=== PATIENT | female | born 1965 | race Caucasian/White ===

== ENCOUNTER 2024-06-26 15:37 | Emergency (ER) | payer OTHER, SELFPAY ==
[2024-06-26 15:42] VITALS: BP 130/89
--- NOTE | 2024-06-26 18:21 | ED.GENMED ---
History of Present Illness
General
Chief Complaint: Fall
Source: patient
Time Seen by Provider: 06/26/24 17:02
History of Present Illness
History of Present Illness:
59yoF with a history of chronic neck pain on opioids presenting for evaluation after a fall about 1.5 weeks ago. Patient tripped on her dog and landed on her left side. No head strike or LOC. She reports left sided rib pain as well as left shoulder
and wrist pain. The pain seems to be worsening over the past several days. No shortness of breath.
Past History
Past History
ED Past Medical History: Asthma, Other (Cellulitis) and Other (Chronic neck and back pain, narcotic dependent, hepatitis C)
ED Past Surgical History: and Orthopedic (cspine)
Social History
Tobacco: Former smoker
Alcohol: None
Drug: None
Personal:
Living: with family
Employment: Employed
Family History
Family History: Hypertension
Phy Exam
General Physical Exam
General Presentation: well appearing and no apparent distress
General age: appears stated age
General Skin: warm and dry
General Habitus: normal
General Mental: alert
Pulmonary Exam
Pulmonary Exam: lungs clear, no respiratory distress, no crackles, no wheezing and other (Bilateral breath sounds. +L sided chest tenderness. No skin changes or deformity. )
Musculoskeletal Exam
Musculoskeletal Exam: other (ROM of L shoulder mildly limited 2/2 pain. No deformity or soft tissue swelling. +Diffuse L wrist tenderness. No snuffbox tenderness. 2+ radial pulse and sensation intact. )
Skin Exam
Skin Exam: normal color and warm/dry
Course
Orders/Labs/Results
Orders:
Orders
06/26/24 15:47
Ribs, Left 3 View W/PA Chest CR [CR Ribs-left 3 Vw W/pa Chest] Urgent
Comment:
Reason For Exam: left anterior chest pain from fall onto left side
06/26/24 15:48
Wrist, Left 3 Views CR [CR Wrist - Left Min 3 Views] Urgent
Comment:
Reason For Exam: left wrist injury from fall
06/26/24 15:49
Electrocardiogram (*1) Urgent
Reason for Study: Chest Pain
EKG- Treatment ONCE
06/26/24 17:25
CR Shoulder - Left Min 2 View* Urgent
Comment:
Reason For Exam: pain, injury
06/26/24 18:21
[place] Wrist Right-Tx ONCE
Incentive Spirometry [Rx Incentive Spirometry] [RESP] Urgent
Frequency: q1h while awake
Vital Signs
Initial and Last Documented VS:
Initial Vital Signs
Temp Pulse Resp BP Pulse Ox
98.4 F 91 18 130/89 99
06/26/24 15:42 06/26/24 15:42 06/26/24 15:42 06/26/24 15:42 06/26/24 15:42
Last Documented Vital Signs
Temp Pulse Resp BP Pulse Ox
98.4 F 91 18 130/89 99
06/26/24 15:42 06/26/24 15:42 06/26/24 15:42 06/26/24 15:42 06/26/24 15:42
MDM/Problems Addressed
Differential Diagnosis Includes:
59yoF here with L rib, shoulder, and wrist pain after a fall 1.5 weeks ago. She is afebrile and hemodynamically stable. Oxygen saturation 99% on room air. +L sided rib tenderness on exam without deformity or skin changes. Lungs CTA. LUE is
neurovascularly intact. Differential diagnosis includes but is not limited to: Rib fracture, sprain, pneumothorax
X-rays of L shoulder, L wrist, and L rib series obtained. No acute fractures seen per my interpretation. No pneumothorax appreciated. Incentive spirometer given for pulmonary toilet. Wrist brace provided. Supportive care discussed. Advised f/u with
PCP. ED return precautions discussed. Patient discharged in stable condition.
*Critical Care Note
Total Time (30-74mins, 75-104mins- exclusive of procedures): Not Applicable
ED Attending Note
-
Portions of this chart may have been created with voice recognition software.� Occasional wrong word or��sound alike� substitutions may have occurred due to the inherent limitations of voice recognition software.
Discharge Plan
Departure
Patient Disposition: Home (Routine Discharge)
Date of Disposition: 06/26/24
Time of Disposition: 18:26
Patient with high blood pressure during this ER visit?: No
Discharge Problem:
Fall from slip, trip, or stumble, Rib pain on left side, Left wrist sprain
Instructions: Bruised Rib (DC)
Prescriptions:
No Action
sertraline 100 MG tablet
100 mg PO DAILY
amitriptyline 50 MG tablet
50 mg PO HS
albuterol sulfate 1 PUFF HFA aerosol inhaler
1 puff inhalation R DAILYPRN PRN (Reason: sob)
bacitracin 1 APPLIC ointment
1 applic BOTH EYES HS
oxycodone-acetaminophen [Endocet] 1 EACH tablet
1 ea PO Q6HPRN PRN (Reason: PAIN)
beclomethasone dipropionate [Qvar] 8.7 GM aerosol
1 puff inhalation R BID
cyclosporine [Restasis] 10 DROPS dropperette
1 drp BOTH EYES BID
morphine [Alannah] 60 MG capsule,extend.release pellets
60 mg PO BID
chlorzoxazone [Lorzone] 750 MG tablet
750 mg PO Q6HPRN PRN (Reason: MUSCULOSKELETAL )
omega 5-mqa-fyr-fish oil 1 EACH capsule
1 ea PO HS
multivitamin with folic acid [Tab-A-Keith] 1 TABLET tablet
1 tab PO DAILY
acetaminophen 325 MG tablet
650 mg PO Q4HPRN PRN (Reason: pain or temp > 100.4 F) Qty: 0 0RF
fluticasone propionate [Flovent HFA] 1 PUFF HFA aerosol inhaler
1 puff inhalation R BID Qty: 1 0RF
sodium chloride 0.9 % (flush) [Normal Saline Flush] 1 FLUSH syringe
0 flush IV PER PROTOCOL 0RF
doxycycline hyclate 100 MG capsule
100 mg PO Q12 Qty: 14 0RF
amoxicillin-pot clavulanate 1 TABLET tablet
1 tab PO Q12 Qty: 14 0RF
Referrals:
Erica Oliver DO [Family Provider] -
Activity Restrictions/Additional Instructions:
Take Tylenol and ibuprofen for pain. Apply ice to affected area. Use incentive spirometer every hour while awake. Wear brace for comfort.
Please follow-up with your family doctor on Saturday. Return to the ER with any worsening symptoms.
Interventions
Interventions:
*Risk Screen - Suicide Last Done: 06/26/24 15:44
*General Assessment Last Done: 06/26/24 15:44
*Neglect/Abuse Screening Last Done: 06/26/24 15:44
ED-Musculoskeletal Assessment Last Done: 06/26/24 17:08
ED- Neurological Assessment Last Done: 06/26/24 17:08
ED-Skin Assessment Last Done: 06/26/24 17:08
Discharge Date and Time
Print Language: YORUBA
[2024-06-26 18:38] VITALS: BP 128/88
== END 2024-06-26 18:39 | disposition home or self-care (01) ==
LOC: EMR 15:37
PROVIDERS: EMERGENCY PHYSICIAN Emergency Medicine; FAMILY PHYSICIAN Family Medicine
DX: R07.81 Pleurodynia (principal); S63.502A Unspecified sprain of left wrist, initial encounter; W01.0XXA Fall on same level from slipping, tripping and stumbling without subsequent striking against object, initial encounter; G89.29 Other chronic pain; M54.2 Cervicalgia; J45.909 Unspecified asthma, uncomplicated; Z82.49 Family history of ischemic heart disease and other diseases of the circulatory system; Z86.19 Personal history of other infectious and parasitic diseases; Z87.891 Personal history of nicotine dependence
CPT/HCPCS: 99283; 71101; 73030; 73110; 93005

== ENCOUNTER 2025-06-01 02:59 | Emergency (ER) | payer OTHER, SELFPAY ==
[2025-06-01] VITALS (7 sets, daily range): BP systolic 90–119; BP diastolic 56–81
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
[2025-06-01] MEDS: NSS 1000 IV (03:44)
[2025-06-01 03:52] LABS: Hematocrit 33.0 % (37.0-47.0); Hemoglobin 11.9 g/dL (12.0-16.0); Mean Corp Hgb Conc. 36.1 g/dL (33.0-37.0); Mean Corpuscular Volume 88.7 fL (81.0-99.0); Nucleated Red Blood Cells % 0 %; Platelet Count 195 10^3/uL (130-400); Red Cell Dist. Width 11.9 % (11.5-14.5)
[2025-06-01 04:04] LABS: Ammonia < 9 umol/L (9-30)
[2025-06-01 04:17] LABS: ALT (SGPT) 53 U/L (0-35); AST (SGOT) 146 U/L (14-36); Albumin 4.0 g/dl (3.5-5.0); Alkaline Phosphatase 143 U/L (38-126); Blood Urea Nitrogen 22 mg/dl (7-17); Calcium 8.5 mg/dl (8.4-10.2); Carbon Dioxide 31 mmol/L (22-30); Chloride 104 mmol/L (98-107); Glucose 93 mg/dl (70-99); Lipase 74 U/L (23-300); Potassium 5.0 mmol/L (3.5-5.1); Sodium 139 mmol/L (135-145); Total Protein 7.3 g/dl (6.3-8.2); eGFR > 60.00
[2025-06-01 04:35] LABS: Urine Character Clear (Clear)
[2025-06-01 04:51] LABS: Urine Squamous Cell >30 /LPF (Few)
[2025-06-01 04:53] LABS: Urine Red Blood Cell 0-2 /HPF (0-2)
[2025-06-01] MEDS: MORPHINE SULFATE 4 MG IV (05:20)
[2025-06-01] MEDS: ATIVAN 1 MG IV (05:28)
[2025-06-01] MEDS: NSS 500 IV ×2 (06:37)
--- NOTE | 2025-06-01 08:18 | EDRN ---
Hoe med list not done by prior shift. Pt unable to provide. Will have pharmacy review this
[2025-06-01] MEDS: TORADOL 30 MG IV (08:53)
--- NOTE | 2025-06-01 09:28 | EDRN ---
report to Wang at [facility]
[2025-06-01] MEDS: ATIVAN 0.5 MG IV (09:40)
== END 2025-06-01 09:44 | disposition short-term general hospital (02) ==
LOC: EMR 02:59
PROVIDERS: Physician Assistant; EMERGENCY PHYSICIAN Student in an Organized Health Care Education/Training Program; FAMILY PHYSICIAN Physician Assistant Medical
DX: S22.42XA Multiple fractures of ribs, left side, initial encounter for closed fracture (principal); W06.XXXA Fall from bed, initial encounter; J45.909 Unspecified asthma, uncomplicated; Z87.891 Personal history of nicotine dependence; M35.00 Sjogren syndrome, unspecified; Z86.19 Personal history of other infectious and parasitic diseases
CPT/HCPCS: 99284; 96374; 96375; 96376; 96361; 70450; 71101; 74177; 80053; 80306; 80307; 81003; 81015; 82077; 82140; 82550; 83690; 85025; 87086; Q9967

== ENCOUNTER 2025-07-15 06:02 | Day surgery (SDC) | payer OTHER, SELFPAY ==
[2025-07-15 14:10] VITALS: BP 104/71
[2025-07-15 14:20] VITALS: BMI 18.5
[2025-07-15 15:55] VITALS: BP 125/87
[2025-07-15 16:00] VITALS: BP 123/83
[2025-07-15 16:15] VITALS: BP 127/88
== END 2025-07-15 16:41 | disposition home or self-care (01) ==
LOC: GI 06:02
PROVIDERS: ATTENDING PHYSICIAN Internal Medicine
DX: Z12.11 Encounter for screening for malignant neoplasm of colon (principal); R19.5 Other fecal abnormalities; K57.30 Diverticulosis of large intestine without perforation or abscess without bleeding; K64.8 Other hemorrhoids; R63.4 Abnormal weight loss; Z53.8 Procedure and treatment not carried out for other reasons
CPT/HCPCS: G0121